=== PATIENT | female | born 1945 | race Caucasian/White ===

== ENCOUNTER 2016-05-29 19:19 | Inpatient (IN) | payer MEDICARE, MEDICAID ==
[~2016-05-29] VITALS: Ht 162.6 cm; Wt 84.5 kg
--- NOTE | ~2016-05-29 | ECH ---
Transesophageal Echocardiography Report (UZMA) Demographics Patient Name DEMETRIS DAVIS Date of Study 06/04/2016 Patient Number [id number] Visit Number [id number] Date of 1945 Room Number 429 Accession Number [id number] Gender Female Age 71 year(s) Referring Edson Rene MD Casualty Claim Adjuster Alejandra Montelongo [facility] Physician Raine Weeks PAC Physician Interpreting Krystin Buchanan Shift Manager Physician MD Supervising Ordering Physician Krystin Buchanan MD/CHEPE VILLAGRAN Nurse Stress Supervisor Evaporator The procedure was explained in detail to the patient. Risks, complications and alternative treatments were reviewed. Written consent was obtained. Conclusions Summary The estimated left ventricular ejection fraction is 55-60%. No evidence of patent foramen ovale by saline bubble study . There is no evidence of thrombus in the left atrium or the left atrial appendage. Mild atheroma in aorta. Procedure Type of Study UZMA procedure:UZMA SF. Procedure Date Date: 06/04/2016 Start: 08:46 AM Technical Quality: Adequate visualization Indications:Atrial fibrillation. Appropriate Use Criteria: 9 Height: 64 inches Weight: 186 pounds BSA: 1.9 m Rhythm: Atrial fibrillation HR: 120 bpm BP: 143/69 mmHg UZMA Performed By: Dewayne Mcclelland MD Procedure Informed Consent Procedure consent form obtained. - See IV sedation record Type of Anesthesia: Moderate sedation Findings Mitral Valve Normal mitral valve structure and function with trivial regurgitation. Aortic Valve Normal aortic valve structure and function. Tricuspid Valve Normal appearing tricuspid valve. Trivial tricuspid regurgitation by color Doppler. Pulmonic Valve Normal pulmonic valve structure and function. Signature
--- NOTE | 2016-05-31 12:41 | CO ---
ADMIT: 05/29/2016 RM/LOC: 313 [facility] MR#: [id number] [address] [address] SHANNAN DAVIS [address] [place] [address] Consultation SEX: F AGE: 71 : 1945 DATE OF CONSULTATION: 05/29/2016 ATTENDING PHYSICIAN: Scott Sandhu CONSULTING PHYSICIAN: Rick Bacon MD REASON FOR CONSULTATION: Atrial fibrillation with rapid ventricular response. HISTORY OF PRESENT ILLNESS: Shannan is an interesting 71-year-old female, who I was asked to see in consultation from Dr. Sandhu regarding atrial fibrillation. Shannan has a long history of atrial fibrillation dating back to 2010 when she underwent a cardioversion. She had been on diltiazem and flecainide and had been maintaining sinus rhythm. She presented in April with symptoms of some episodic chest pain. She had a prior stress test back in 2013 that was abnormal. She was treated medically at that time, but now with the chest pain, it was decided to change her flecainide to sotalol. She was started on 80 mg twice a day, but she had extreme fatigue with the sotalol. She had this decreased to 40 mg twice a day and underwent a Holter monitor that showed sinus rhythm with average heart rate in the 60s. She then was seen 2 days ago on May [address] Shaffer. At that time, she was in atrial fib with heart rate in the low 100. He stopped her sotalol and placed her on diltiazem, however, she understood that she was to stop all her medications. She subsequently quit taking all her medications Thursday evening and did not take anything until she presented to the emergency room on night with shortness of breath and palpitation. She was in atrial fibrillation and her heart rate was then in the 120s to 140s. She was admitted and placed on a Cardizem drip. She at this point, denies any chest pain. Denies orthopnea. She does have chronic shortness of breath and has underlying COPD. PAST MEDICAL HISTORY: 1. History of atrial fibrillation. 2. History of severe COPD. 3. History of pulmonary hypertension. 4. History of hypertension. 5. History of allergic rhinitis. 6. History of congenital left hand absence. MEDICATIONS: She is currently on: 1. Cardizem drip. 2. Eliquis 5 mg b.i.d. 3. Potassium 10 mEq daily. 4. Pepcid 20 mg b.i.d. 5. Dulera 2 puffs b.i.d. 6. DuoNeb q.i.d. 7. Solu-Medrol 40 mg IV q.8. SOCIAL HISTORY: She lives alone. She has 4 sons and 2 daughters. She states she rarely consumes alcohol. She drinks 1 cup of coffee a day. Does not do any regular exercise. She has a regular diet. She is a former smoker. ADMIT: 05/29/2016 RM/LOC: 313 [facility] MR#: [id number] [address] [place] [id number] SHANNAN DAVIS [address] [place] [address] Consultation SEX: F AGE: 71 : 1945 FAMILY HISTORY: Denies any family history of early coronary artery disease or strokes. REVIEW OF SYSTEMS: GENERAL: She denies any weight gain or fever. She has had generalized fatigue. EYES: Denies any visual changes. ENT: She does have decreased hearing. RESPIRATORY: She is short of breath, has COPD. CARDIAC: Denies orthopnea. She does have palpitations. Denies any syncope. She has had chest pain as described above. VASCULAR: Denies any claudication or edema. GI: Denies any bleeding. Positive for nausea and reflux. : Negative for hematuria or nocturia. ENDOCRINE: Denies any goiter or tumors. NEUROLOGIC: Denies any seizures. She appears to have some confusion at times. PSYCHIATRIC: Denies any hallucinations or depression. Denies anxiety. SKIN: Denies any sores. She does have a rash. MUSCULOSKELETAL: Denies any myalgias. She does have joint pain. HEMATOLOGIC: Denies any anemia or thrombocytopenia or easy bruising. All other systems reviewed and negative. PHYSICAL EXAMINATION: VITAL SIGNS: Blood pressure of 132/75, pulse is 128, respirations 25, oxygen 97% on oxygen, temperature 96.9, and weight 182. SKIN: [place], warm and dry. EYES: Sclerae clear. No xanthelasmas. ENT: Oral mucosa is pink and moist. She has nasal cannula oxygen on. RESPIRATIONS: She has coarse breath sounds. No wheezes or rhonchi. HEART: Irregularly irregular. ABDOMEN: Soft, nontender, and nondistended. EXTREMITIES: No clubbing, cyanosis, or edema. GENERAL: She is ill appearing, in no acute distress though. NECK: Supple. No bruits. SKIN: Dry. No lesions MUSCULOSKELETAL: Gait is normal. NEUROLOGIC: Cranial nerves II through XII intact. PSYCHIATRIC: She is alert, oriented, and appropriate. DIAGNOSTIC DATA: Troponin is negative. CK and CK-MB were normal. Potassium 4.7, creatinine 0.6. White blood cell count 8.9, hemoglobin 11.7, and platelets 140. IMPRESSION AND PLAN: Atrial fibrillation with rapid ventricular response. She is on oral diltiazem and her heart rate is a little better but still not optimal. We will start her on oral diltiazem and try to titrate down her IV Cardizem. She appears to have some baseline confusion and noncompliance with ADMIT: 05/29/2016 RM/LOC: 313 [facility] MR#: [id number] [address] [place] [phone] SHANNAN DAVIS [address] [place] [address] Consultation SEX: F AGE: 71 : 1945 her medications. She was seen on May 28 and instead of making med changes, she stopped all her medications, for about 24 hour period, she was without anticoagulation, however, actually talking to her, I am not confident that she has even been taking her medications as prescribed previously. This is a very difficult situation. I think she is symptomatic with her atrial fibrillation with rapid ventricular response. I would consider another antiarrhythmic, however, I am concerned about her tolerance and compliance with taking them. We could consider either dofetilide or amiodarone. Certainly with her underlying lung disease, dofetilide may be a better choice, but she also has to be reliable in taking it. We will get her rapid ventricular response better controlled and then decide about antiarrhythmic therapy as her care progresses. Rick Bacon MD/ mukesh JOB #: [id number] CC: Scott Sandhu, Attending Physician Scott Snadhu, Family Physician
--- NOTE | 2016-05-31 13:44 | ER ---
ADMIT: 05/29/2016 RM/LOC: 313 [facility] MR#: [id number] [address] [address] DEMETRIS DAVIS [address] [place] [address] Emergency Room Report SEX: F AGE: 71 : 1945 DATE: 05/29/2016 The patient is a 71-year-old female with a history of COPD, pulmonary hypertension, atrial fibrillation, and gastroesophageal reflux disease, who came to the ER with chief complaint of shortness of breath. The patient states she has been seen in the ER and she believes that she was told to stop all the medications, so she stopped all the medications for 1 day and she noticed she was short of breath, which started more in the morning and gradually increased during the day. Per EMS they got at the scene, the patient's O2 saturation was low 90s. The patient was in [id number] respiratory distress, received 2 DuoNeb nebulizer and Solu-Medrol IV. The patient felt better and was put on CPAP. In the ER, the patient was slightly anxious and O2 saturation was 90% on room air and heart rate was 155 to 160 irregularly irregular pulses and heart rate was atrial fibrillation, RVR. Blood pressure was holding systolic in 126, diastolic in mid 60s. The patient was alert, oriented, and denied any chest pain. The patient was taken off the CPAP and states the shortness of the breath also resolved. The patient has already been on sotalol, which she did not take it for the last day. The patient received 2 doses of bolus Cardizem 5 and 10 mg, which at first decreased the rate, but could not hold it down. The rate again came back to 135 to 140, and the patient was started on Cardizem drip. Blood pressure slightly dropped and the patient received IV bolus. Meanwhile, the physical examination of the patient head and neck was normal. No bruit in the neck. No murmur radiating to neck. Normal heart sounds without any murmurs, bilateral equal breath sounds. Abdomen is soft. There are no skin rashes. Motor and sensory and cranial and cerebellar tests are all within normal limits. The patient is in no obvious distress at the moment. After starting the Cardizem drip, the pulse rate was in the 95 to 105 rate. Internal Medicine was consulted and the patient was admitted for atrial fibrillation with RVR, COPD exacerbation, medication noncompliance. Devang Sylvester MD/ mukesh JOB #: [id number] CC: Scott Sandhu MD, Attending Physician Scott Sandhu MD, Family Physician
--- NOTE | 2016-06-02 08:11 | HP ---
ADMIT: 05/29/2016 RM/LOC: 313 [facility] MR#: [id number] [id number] [address] [address] DEMETRIS DAVIS [address] [place] [address] History and Physical SEX: F AGE: 71 : 1945 DATE OF SERVICE: CHIEF COMPLAINT: Shortness of breath. HISTORY OF PRESENT ILLNESS: This is a 71-year-old female, history of severe COPD, pulmonary hypertension, atrial fibrillation. Apparently in the recent past, she had been changed from diltiazem and flecainide to sotalol. After this change, the patient reports she felt very fatigued, very sleepy, and she had increased shortness of breath. She felt like she had less productive cough, but had more of cough. She was feeling really weak, so she stopped all her medicine. Today, she came in feeling increased shortness of breath. When she arrived, she was in atrial fibrillation with rapid ventricular response with a rate of 160s. She was given a bolus of diltiazem, which then dropped her blood pressures down quite low into the 70s. She was given IV fluid and put in a head-down position. Currently, she is lying flat. She does have fluid running and Cardizem is turned off. Heart rate right now is bouncing between 120s to 140s. She continues to feel poorly overall, but mostly does not like lying flat, it is hurting her back. PAST MEDICAL HISTORY: 1. Severe COPD. 2. Pulmonary hypertension. 3. Atrial fibrillation with RVR. 4. History of cor pulmonale. 5. Hypertension. 6. Seasonal allergies. 7. Congenital left hand absence. MEDICATIONS: She is currently not taking any. SOCIAL HISTORY: Long history of smoking, none currently. She does live here in [place]. She is retired. She does speak Romansh. FAMILY HISTORY: Reviewed, but noncontributory. REVIEW OF SYSTEMS: Other complete review of systems obtained and negative except as above. PHYSICAL EXAMINATION: VITAL SIGNS: Heart rate 120s-140s. Blood pressure at the current time is 130s over 80s, but has fluctuated even though within the last past hour down in the 50s, systolically. She is afebrile. Oxygen saturation is 99%. She is on 4 L of oxygen by nasal cannula. GENERAL: This is a mildly ill-appearing 71-year-old female. She is lying on her back in the ER at the time I see her. HEENT: Pupils equal, round, and reactive to light and accommodation. Her extraocular muscles are intact. Her throat is clear. NECK: Supple. Normal range of motion. Trachea is midline and thyroid is not palpable. RESPIRATIONS: She is wearing oxygen. Heart going too fast. I cannot hear ADMIT: 05/29/2016 RM/LOC: 313 [facility] MR#: [id number] [address] [place] [id number] DMEETRIS DAVIS [address] [place] [address] History and Physical SEX: F AGE: 71 : 1945 any murmurs. HEART: Tachycardic and irregular. LUNGS: Severely diminished bilaterally. No wheezes, rhonchi, or rales. ABDOMEN: Soft. Mildly tender to deep palpation. Bowel sounds are normal in all quadrants. LOWER EXTREMITIES: Have no lower extremity edema. SKIN: She has some dry skin throughout. No skin lesions can be seen. MUSCULOSKELETAL: She can move all extremities equally bilaterally. She has a congenital absence of her left hand. LABORATORY AND X-RAY DATA: Urine is completely clear. CBC; white count 8.9, hemoglobin 11.7, platelets of 140. Pro-time, INR, D-dimer, PTT all normal. Lactic acid is 0.7. CMP shows sodium 145, potassium 4.7, chloride 100, bicarb is 39, BUN 20, creatinine 0.6, glucose 123. Calcium normal, AST was 145, other liver tests normal. CK 22, creatinine 0.023, which is normal. Procalcitonin is less than 0.05. ASSESSMENT: 1. Atrial fibrillation with rapid ventricular response. 2. Hypotension secondary to atrial fibrillation. 3. Pulmonary hypertension. 4. Severe chronic obstructive pulmonary disease with exacerbation. 5. Acute on chronic hypoxic respiratory failure. PLAN: The patient initially was in the 80s on her usual oxygen setting, so she needed a couple of extra liters. Current sats are okay. We will give her a little IV fluid, hopefully we can restart her Cardizem. We will consult Cardiology for management of her antiarrhythmics, and she has received a dose of digoxin and Cardizem hopefully with some more time tonight with fluids we can get her heart rate to calm down. I will treat her for COPD exacerbation with some IV steroids and nebulizer treatments and IV doxycycline in case have to be some type of infectious component to this given her severe COPD. Scott Sandhu MD/ mukesh JOB #: [id number] CC: Scott Sandhu, Attending Physician Scott Sandhu, Family Physician
--- NOTE | 2016-06-06 08:13 | CVR ---
ADMIT: 05/29/2016 RM/LOC: 429 [facility] MR#: [id number] [address] [address] DEMETRIS DAVIS Jack [address] [place] [address] Cardioversion Report SEX: F AGE: 71 : 1945 DATE: 06/04/2016 INDICATION: Atrial fibrillation. PROCEDURE: Following informed consent in the patient's room with the assist of anesthesia, a UZMA was performed showing no evidence of left atrial appendage thrombus. Following UZMA with continued sedation help with anesthesia, synched biphasic energy shock was delivered with pads in anterior- posterior fashion, 120 joules was delivered. The patient returned to sinus rhythm. No complications. Rudolph Mcclelland MD/ jodi JOB #: [id number] CC: Scott Sandhu, Attending Physician Scott Sandhu, Family Physician
[2016-06-08] MEDS ORDERED: SYMBICORT160 MCG/6 IH (11:28)
[2016-06-08] MEDS ORDERED: PEPCID DPS20 MG PO (11:28)
[2016-06-08] MEDS ORDERED: LASIX DPS20 MG PO (11:28)
[2016-06-08] MEDS ORDERED: ULTRAM DPS50 MG PO (11:28)
[2016-06-08] MEDS ORDERED: ELIQUIS5 MG PO (11:28)
[2016-06-08] MEDS ORDERED: PROVENTIL HFA6.7 GM IH (11:29)
[2016-06-08] MEDS ORDERED: VITAMIN D31000 UNIT PO (11:29)
[2016-06-08] MEDS ORDERED: ZANAFLEX4 MG PO (11:29)
[2016-06-08] MEDS ORDERED: MICRO-K DPS10 MEQ PO (11:29)
[2016-06-08] MEDS ORDERED: DUONEB DPS3 ML IH (11:29)
[2016-06-08] MEDS ORDERED: COLACE-DPS100 MG PO (11:30)
[2016-06-08] MEDS ORDERED: DELTASONE DPS10 MG PO (11:30)
[2016-06-08] MEDS ORDERED: ZEBETA5 MG PO (11:31)
[2016-06-08] MEDS ORDERED: CARDIZEM CD360 MG PO (11:31)
[2016-06-08] MEDS ORDERED: TIKOSYN250 MCG PO (11:31)
--- NOTE | 2016-06-14 09:04 | DS ---
ADMIT: 05/29/2016 RM/LOC: 429 [facility] MR#: [id number] [address] [address] DEMETRIS DAVIS [address] [place] [address] Discharge Summary SEX: F AGE: 71 : 1945 ADMISSION DATE: 05/29/2016 DISCHARGE DATE: 06/06/2016 FINAL DIAGNOSES: 1. Atrial fibrillation with RVR. 2. Chronic obstructive pulmonary disease with exacerbation. 3. Chronic hypoxic respiratory failure. REASON FOR ADMISSION: This is a 71-year-old female, who presented with increased weakness. She was found to have some wheezing as well as atrial fibrillation with RVR. She was treated with IV diltiazem and ultimately transitioned to Tikosyn to try to keep her rate under control. A direct current cardioversion was attempted on the . Unfortunately, it did not keep her heart in normal sinus rhythm very long. She is continued on Tikosyn, but put on bisoprolol the . Heart rates did improve dramatically after that, however, she did have some prolonged 2 seconds times between her RR intervals, this was asymptomatic. She was actually feeling very well on the . She is continued on a steroid taper. She had already finished her antibiotics. She was set up to be discharged to home with some home health given her weakness related to her hospitalization, need for medication monitoring as well. She will follow up with Cardiology as well as me in 1 to 2 weeks. Scott Sandhu MD/ mukesh EDIT 06/10/2016 1450 / hannah JOB #: [id number] CC: Scott Sandhu MD, Attending Physician Scott Sandhu MD, Family Physician
== END 2016-06-06 12:57 | disposition home health service (06) | DRG 308 ==
LOC: ER 19:19 → 3ICU 21:39 → 4PCU 21:39 → 3ICU 05-30 19:09 → 4PCU 05-31 00:56
PROVIDERS: ADMIT Internal Medicine
PROC: 5A2204Z Restoration of Cardiac Rhythm, Single (ICD-10-PCS; principal; 2016-06-04)
DX: I48.91 Unspecified atrial fibrillation (principal); J96.21 Acute and chronic respiratory failure with hypoxia; E87.0 Hyperosmolality and hypernatremia; I27.2 Other secondary pulmonary hypertension; I95.9 Hypotension, unspecified; R13.10 Dysphagia, unspecified; J44.1 Chronic obstructive pulmonary disease with (acute) exacerbation; K21.9 Gastro-esophageal reflux disease without esophagitis; K59.00 Constipation, unspecified; R94.39 Abnormal result of other cardiovascular function study; I10 Essential (primary) hypertension; J30.9 Allergic rhinitis, unspecified; Q71.32 Congenital absence of left hand and finger; Z91.14 Patient's other noncompliance with medication regimen; Z87.891 Personal history of nicotine dependence

== ENCOUNTER 2016-06-12 08:29 | Day surgery (SDC) | payer MEDICARE, MEDICAID ==
[~2016-06-12] VITALS: Ht 162.6 cm; Wt 81.3 kg
[~2016-06-12 08:29] MED LIST: CARDIZEM CD360 MG PO; COLACE-DPS100 MG PO; DELTASONE DPS10 MG PO; DUONEB DPS3 ML IH; ELIQUIS5 MG PO; LASIX DPS20 MG PO; MICRO-K DPS10 MEQ PO; PEPCID DPS20 MG PO; PROVENTIL HFA6.7 GM IH; SYMBICORT160 MCG/6 IH; TIKOSYN250 MCG PO; ULTRAM DPS50 MG PO; VITAMIN D31000 UNIT PO; ZANAFLEX4 MG PO; ZEBETA5 MG PO
--- NOTE | 2016-06-27 17:23 | CVR ---
ADMIT: 06/12/2016 RM/LOC: S[facility] MR#: [id number] [address] [address] SHANNAN DAVIS [address] [place] [address] Cardioversion Report SEX: F AGE: 71 : 1945 DATE: 06/12/2016 PROCEDURE: Elective cardioversion. ANESTHESIA: IV propofol was administered and monitored by the Anesthesia Department. INDICATION: Shannan is a 71-year-old, who has had a long history of atrial fibrillation. She has multiple medication intolerances. She has been on sotalol but it was stopped. She then stopped her Cardizem at one point. Ultimately, she has been placed on Tikosyn. She was just in the hospital last week for loading. Cardioversion at that time failed. She presents today for repeat attempt cardioversion after she has been taking her medications routinely. She confirmed that she has been compliant with her anticoagulation and antiarrhythmic therapy. DESCRIPTION OF PROCEDURE: Informed consent was obtained. All questions were answered. The defibrillator pads were placed in the anterior and posterior position. After achieving adequate anesthesia, one biphasic defibrillation with 200 joules successfully restored sinus rhythm. There were no immediate complications. RECOMMENDATIONS: I reinforced the importance of taking her medications routinely. I will have her followup with us in just a few weeks. Eligio Florence MD/ mukesh JOB #: [id number] CC: Yassine Shaffer, Attending Physician Scott Sandhu, Family Physician
== END 2016-06-12 12:20 | disposition home or self-care (01) ==
LOC: SSS 08:29
DX: I48.0 Paroxysmal atrial fibrillation (principal); I34.8 Other nonrheumatic mitral valve disorders; I10 Essential (primary) hypertension; J45.909 Unspecified asthma, uncomplicated; M19.90 Unspecified osteoarthritis, unspecified site; J44.9 Chronic obstructive pulmonary disease, unspecified; Z90.49 Acquired absence of other specified parts of digestive tract; Z90.710 Acquired absence of both cervix and uterus; Z87.891 Personal history of nicotine dependence; Z79.899 Other long term (current) drug therapy

== ENCOUNTER 2016-08-09 14:31 | Inpatient (IN) | payer MEDICARE, MEDICAID ==
[~2016-08-09] VITALS: Ht 162.6 cm; Wt 83.4 kg
--- NOTE | 2016-08-10 12:33 | HP ---
ADMIT: 08/09/2016 RM/LOC: 308 [facility] MR#: [id number] [address] [address] DEMETRIS DAVIS Jack [address] [place], [place] [address] History and Physical SEX: F AGE: 71 : 1945 DATE OF SERVICE: CHIEF COMPLAINT: Shortness of breath. HISTORY OF PRESENT ILLNESS: The patient is a 71-year-old female. She has a past medical history of COPD, pulmonary hypertension, chronic hypoxic respiratory failure, atrial fibrillation with recent DC cardioversion, presents to [facility] emergency room today as she was found down by her son. According to reports, son is stopped by earlier in the day and was just seemed like she was little sleepy, not quite herself, would open her eyes. He came back to check on her again, and she was not responsive at all and seemed agonal with breathing. They called the paramedics and they found her to be in respiratory distress, so she was brought to the emergency department for further evaluation. She was found to be acidotic with a pCO2 greater than 100, and she was placed on BiPAP with improvement in her symptoms. She was also noted to initially be hypothermic with a temperature of 93.8. In visiting with the patient, she does not remember getting up this morning and actually does not think she even got out of bed. Did note going to bed last night. Did notice she had been little more short of breath. No chest pain. No fevers or chills have been noted. No actually new cough or sputum production have been noted by family. No abdominal pain, nausea, or vomiting. No new leg swelling is noted. Taking all medications as directed. The patient was recently hospitalized in June of this year for COPD exacerbation, atrial fibrillation with RVR and was DC cardioverted once on June 04 and again on June 12 after being started with Tikosyn. PAST MEDICAL HISTORY: 1. Atrial fibrillation with rapid ventricular response, on chronic anticoagulation status post DC cardioversion in June of this year. 2. Severe COPD with chronic hypoxic respiratory failure. 3. Pulmonary hypertension. 4. Atrial fibrillation. 5. GERD. 6. History of cor pulmonale. 7. Hypertension. 8. Seasonal allergic rhinitis. 9. Congenital absence of left hand. HOME MEDICATIONS: Include: 1. Potassium. 2. Lasix. 3. Eliquis. 4. Pepcid. 5. Diltiazem. 6. Zebeta. 7. Symbicort. 8. DuoNeb. 9. Tramadol. 10.Mucinex. ADMIT: 08/09/2016 RM/LOC: 308 [facility] MR#: [id number] [address] [place] [phone] DEMETRIS DAVIS [address] [place] [address] History and Physical SEX: F AGE: 71 : 1945 ALLERGIES: NO KNOWN MEDICAL ALLERGIES. SOCIAL HISTORY: She has a prior long history of smoking, not currently, lives in [place]. She is retired. FAMILY HISTORY: Noncontributory. REVIEW OF SYSTEMS: As noted above. All other systems reviewed and negative. PHYSICAL EXAMINATION: VITAL SIGNS: Right now, her blood pressure is 111/52, heart rate is 108, temperature was 96.1, she is saturating 98% on BiPAP 15/5. GENERAL: This is a female, actually appears little older than her stated age. She is in no apparent distress. She now is awake and alert, is able to communicate slightly through the BiPAP mask, but also was able to write notes appropriately. HEENT: Her head is normocephalic and atraumatic. Mucous membranes are little dry. NECK: Supple. LUNGS: Poor air movement, I do hear diminished at the bases with a few rales especially in the posterior lung patel. Air movement is really poor at this time. HEART: Tachy and regular. ABDOMEN: Soft, nontender, and nondistended. Positive bowel sounds throughout. EXTREMITIES: 1 to 1+ edema feet, ankles, and calves bilaterally. NEUROLOGIC: She is able to move all 4 extremities. Cranial nerves do appear to be intact. She follows commands. LABORATORY DATA: Lab work shows hemoglobin 12.4, white count was 8.6, and 137,000 platelets. Sodium 143, potassium 5.8, BUN is 37 with a creatinine of 1.0. Calcium is 8.8, mag was 2.5. UA was really within normal limits. Her initial blood gas 7.16, 130, and 68. AST, ALT, alkaline phosphatase, and total bilirubin all within normal limits. Her BNP was greater than 5600, CK 33, MB 3.9, troponin is less than 0.015. Procalcitonin is less than 0.05. Lactic acid was 1. Chest x-ray shows significant interstitial prominence when compared to her last film from late May, there was significant cardiomegaly noted with interstitial prominences consistent heart failure and atrial fibrillation. Her EKG shows atrial fibrillation at 116, no acute changes were noted. ASSESSMENT AND PLAN: 1. Loss of consciousness/delirium. 2. Acute hypercapnic respiratory failure with a history of chronic hypoxic respiratory failure. 3. Severe chronic obstructive pulmonary disease and pulmonary hypertension. 4. Acute diastolic heart failure with history of cor pulmonale. 5. Atrial fibrillation with rapid ventricular response. 6. Hypothermia. ADMIT: 08/09/2016 RM/LOC: 308 [facility] MR#: [id number] [address] [place] [phone] DEMETRIS DAVIS [address] [place] [id number] History and Physical SEX: F AGE: 71 : 1945 At this time, the patient is awake and alert after being really obtunded earlier. We got another blood gas is pending. We are going to keep her on BiPAP right now, and we will titrate her oxygen saturations just greater than 88. With her hypothermia, we will get her on a Raghavendra Hugger. She has been cultured up, and I will cover her with antibiotics right now and nebulized treatments. Her blood pressures overall look okay. I am going to try to diurese her a little bit. Right now, my guess is that she jumped into atrial fibrillation today, and it pushed her into some heart failure and worsened her chronic respiratory failure. We will have Cardiology see her. We are going to trend out some cardiac enzymes and also cover her with some steroids. We will follow closely. Lexx Huerta MD/ mukesh JOB #: [id number] CC: Scott Sandhu, Attending Physician Scott Sandhu, Family Physician
--- NOTE | 2016-08-11 15:08 | CO ---
ADMIT: 08/09/2016 RM/LOC: 308 [facility] MR#: [id number] [address] [address] DEMETRIS DAVIS [address] [place] [address] Consultation SEX: F AGE: 71 : 1945 DATE OF CONSULTATION: 08/10/2016 ATTENDING PHYSICIAN: Scott Sandhu CONSULTING PHYSICIAN: Rudolph Mcclelland MD REASON FOR CONSULTATION: Atrial fibrillation. HISTORY OF PRESENT ILLNESS: Ms. Davis is a 71-year-old white female well known to our service, who presented with atrial fibrillation, and was found down at home. We are consulting her at the request of Dr. Huerta for the problem of atrial fibrillation with rapid ventricular response. She was found down by her son per the H and P. She was a little sleepy, not quite herself at that time reading the HPI, and when he came back to check on her again, she has not responding. She was found to be hypercapnic, was started on BiPAP, and started to wake up a little bit more. Right now, she is on BiPAP and unable to give much rest of her history. PAST MEDICAL HISTORY: Includes: 1. Atrial fibrillation. 2. Severe COPD with chronic hypoxic respiratory failure. 3. Pulmonary hypertension. 4. GERD. 5. Right-sided heart failure. 6. Hypertension. 7. Congenital absence of the left hand. MEDICATIONS: Her current medications include: 1. Cardizem drip. 2. Levaquin. 3. Rocephin. 4. Solu-Medrol. 5. DuoNeb. ALLERGIES: NONE KNOWN. FAMILY HISTORY: Reviewed and there is no evidence of premature coronary disease. SOCIAL HISTORY: She is a long-time smoker. She is retired. She has six children. REVIEW OF SYSTEMS: A full 12-point review of systems was obtained, deemed to be negative except for the pertinently dictated positives in the HPI. PHYSICAL EXAMINATION: VITAL SIGNS: Today her blood pressure is 112/73 with a pulse in the 120s. Her temp is 98.3. Her weight today is 178 pounds. GENERAL: She is a pleasant, well-nourished, well-developed white female. She is on BiPAP, unable to answer many questions. ADMIT: 08/09/2016 RM/LOC: 308 [facility] MR#: [id number] [address] [address] DEMETRIS DAVIS [address] [place] [address] Consultation SEX: F AGE: 71 : 1945 NECK: Shows brisk carotid upstrokes. No JVD or bruit. CHEST: Coarse breath sounds throughout. HEART: Irregular and tachycardic. ABDOMEN: Soft, nontender, nondistended. Bowel sounds are present. EXTREMITIES: No cyanosis, clubbing, edema. MUSCULOSKELETAL: Appears normal. NEUROLOGIC: Exam is normal. SKIN: [place], warm, and dry. LABORATORY AND X-RAY DATA: Laboratory and ancillary data shows a pH this morning of 7.31, pCO2 of 84, PO2 of 69. Her sodium was 144, potassium 5.3, BUN 35, creatinine is 0.8, mag is 2.0. CK, MB, and troponin are all normal. White blood cell count 7.9, hemoglobin 11.4, and platelet count of 102. Chest x-ray shows a left-sided infiltrate. ASSESSMENT AND PLAN: 1. Atrial fibrillation, permanent. 2. Chronic obstructive pulmonary disease. 3. Respiratory failure. 4. Pneumonia. Rates seem appropriate for level of hypoxia and pulmonary infection. Her blood pressure is currently stable, continue Cardizem drip for rate control. EP recommended long-term rate control strategy for her, questionable need for AV iman ablation in the future but not at this time. If needed, we will add digoxin for further rate control. Resume her Eliquis when okay with her primary. I see no obvious evidence of heart failure and suspect this is more due to hypercapnia and pneumonia. Rudolph Mcclelland MD/ mukesh JOB #: [id number] CC: Scott Sandhu, Attending Physician Scott Sandhu, Family Physician
--- NOTE | 2016-08-12 14:52 | CO ---
ADMIT: 08/09/2016 RM/LOC: 308 [facility] MR#: [id number] [address] [address] DEMETRIS DAVIS [address] [place] [address] Consultation SEX: F AGE: 71 : 1945 DATE OF CONSULTATION: 08/11/2016 ATTENDING PHYSICIAN: Scott Sandhu CONSULTING PHYSICIAN: Louisa Trejo APRN TIME IN: 1250 hours. TIME OUT: 1340 hours. REASON FOR CONSULTATION: Supportive care consultation was requested by Dr. Huerta and Dr. Sandhu for discussion of goals for care. HISTORY OF PRESENT ILLNESS: Mrs. Davis is a very pleasant 71-year-old, female with a history of severe COPD, for which she is oxygen dependent as well as a history of pulmonary hypertension, atrial fibrillation, and heart failure. She was admitted on August 09 from home with increasing shortness of breath. PCO2 was found to be greater than 100. She was started on BiPAP therapy. At this time, she is a full code status. Due to her complexities, supportive care consultation was requested to discuss goals for care. In terms of advanced directives, the patient has not completed any. Her son, Luigi Lara, whose phone [phone] is listed as her truck driver salesperson. In discussion with the patient, she states that she has been thinking about completing health care [id number] paperwork and will likely designate someone outside of her family as a person to make medical decisions for her. She is a full code status at this time. Symptomatically, the patient is very fatigued and debilitated. She has had issues with delirium; however, she is alert and appropriate for me throughout the entire conversation. She does feel dyspnea at times. She denies pain or other physical complaints at this time. PAST MEDICAL HISTORY: Severe COPD with chronic hypoxic respiratory failure, pulmonary hypertension, atrial fibrillation, GERD, history of cor pulmonale, hypertension, seasonal allergic rhinitis, and congenital absence of the left hand. ALLERGIES: THE PATIENT HAS NO KNOWN MEDICATION ALLERGIES. CURRENT MEDICATIONS: Please see the patient's MAR for specific routes and dosages. Her current medications are as follows: 1. Rocephin. 2. Levaquin. 3. Mucinex. 4. Pepcid. 5. Eliquis. 6. Zebeta. ADMIT: 08/09/2016 RM/LOC: 308 [facility] MR#: [id number] [address] [address] DEMETRIS DAVIS [address] [place] [address] Consultation SEX: F AGE: 71 : 1945 7. Tiazac. 8. Dulera. 9. Ultram. 10.Solu-Medrol. 11.Tylenol. 12.Nitrostat. 13.DuoNeb. SOCIAL HISTORY: The patient is retired. She is . She has a past history of smoking. I do not believe she uses alcohol or illicit drugs currently. FAMILY HISTORY: Reviewed and noncontributory. FAMILY HISTORY: Reviewed per chart and noncontributory. FUNCTIONAL REVIEW: Prior to her stay, she was living at home. She could perform ADLs. She did become short of breath. Her palliative performance scale prior to admission was around 60% to 70%. Currently, she is mostly in bed. She is requiring mainly assistance for ADLs. Intake is reduced. She is drowsy. Her current palliative performance score is around 40%. REVIEW OF SYSTEMS: A 10-point review of systems was completed and other than those pertinent positives and negatives mentioned in the HPI, it is negative. PHYSICAL EXAMINATION: GENERAL: The patient is examined in the bed. As mentioned, she is fatigued, but in no acute distress. Unable to participate in medical decision making. VITAL SIGNS: Temperature 97.2, pulse is 96, respirations 24, blood pressure 94/78, and oxygen 96% on 45% FiO2 via the BiPAP. HEENT: Head is normocephalic. Pupils are 3 mm bilaterally and brisk. Oral mucosa pink and moist with fair dentition. NECK: Supple. RESPIRATORY: Respirations are equal and nonlabored on BiPAP. LUNGS: Diminished throughout. CARDIOVASCULAR: Irregularly irregular. No edema noted. GASTROINTESTINAL: Soft, nontender. Bowel sounds are positive. MUSCULOSKELETAL: Generalized weakness. She is missing the left hand, which is congenital defect for her. INTEGUMENTARY: Skin turgor is fair. NEUROLOGIC: Alert and oriented x3. She will follow commands. PSYCHIATRIC: Calm and cooperative. No agitation or delirium noted during my exam. DIAGNOSTIC DATA: Sodium 141, potassium 4.3, BUN 51, creatinine 1.1, total protein 6.7, and albumin 3.5. WBC is 14.0, hemoglobin 11.3, hematocrit 38.0, and platelets are 150. ADMIT: 08/09/2016 RM/LOC: 308 [facility] MR#: [id number] [address] [place] [phone] DEMETRIS DAVIS [address] [place] [address] Consultation SEX: F AGE: 71 : 1945 IMPRESSION: 1. Physical debility. 2. Dyspnea. 3. Fatigue. 4. Malaise. 5. Moderate protein-calorie malnutrition. 6. Delirium, however, she is oriented during my exam. 7. Respiratory failure. 8. Heart failure. 9. Atrial fibrillation. 10.Severe chronic obstructive pulmonary disease. 11.Pneumonia. 12.Palliative care. 13.The patient is a full code. PLAN OF TREATMENT: 1. I was able to meet with the patient and her son José Miguel at the bedside. The patient is very fatigued, but oriented x3, unable to participate in medical decision making. We reviewed her overall status and goals for the time ahead. She is aware that her lung disease is very bad. We very briefly started talking about goals. She is fatigued, but does agree to ongoing discussions and is aware that she is likely nearing the point where comfort focused care. It is a viable option. Her son has a hard time with this and is visibly tearful during our discussion, but very supportive of his mother and her decisions. We will continue to discuss goals hopefully more tomorrow when she is feeling a little better and able to participate for an extensive discussion. 2. We did review code status including the burden versus benefit of a full code status versus do not resuscitate/do not intubate status. The patient is very realistic and states that resuscitation would likely be more of a burden than benefit for her. At this time, she is leaning towards transitioning to a DNR/DNI; however, she wants to talk more with her family before making the final decision. Right now, she is a full code. The patient's son José Miguel states that he and most of her children are very supportive of the DNR/DNI should this be what she wants. They will talk as a family tonight and I will follow up tomorrow so that we can ADMIT: 08/09/2016 RM/LOC: 308 [facility] MR#: [id number] [address] [place] [phone] DEMETRIS DAVIS [address] [place] [address] Consultation SEX: F AGE: 71 : 1945 hopefully get a decision made regarding this. 3. The patient does need assistance with advanced directives, and hopefully, we can assist her with completion of healthcare [id number] and potentially POLST form while she is here. 4. We will continue to follow along in the care of this patient and assist with goals pending her status. We would like to thank Dr. Huerta and Dr. Sandhu for the invitation to participate in this patient's care. Total consultation time was 50 minutes from 1250 hours to 1340 hours with 27 minutes from 1255 hours to 1322 hours spent [id number] with the patient and her son discussing goals for care and providing counseling and support. Louisa Trejo APRN/ mukesh JOB #: [id number] CC: Scott Sandhu, Attending Physician Scott Sandhu, Family Physician
--- NOTE | 2016-08-16 08:39 | ER ---
ADMIT: 08/09/2016 RM/LOC: 308 [facility] MR#: [id number] 26[address] [facility] [address] [place] [phone] DEMETRIS DAVIS [address] [place] [address] Emergency Room Report SEX: F AGE: 71 : 1945 DATE: 08/09/2016 This 71-year-old female, who was last seen early this morning by her son. He noted her to be minimally responsive, would open her eyes. He then saw her again around 1330 this afternoon, noted she was not responsive and having great deal of difficulty breathing. He subsequently called paramedics, they arrived, found her to be in respiratory distress, transported to the Emergency Department. We are unable to obtain a history other than what is mentioned above as the patient is in [id number] respiratory distress, is obtunded and minimally responsive. PAST HISTORY: Per records of atrial fibrillation, hypertension, severe COPD. PHYSICAL EXAM: GENERAL: 71-year-old female, severe distress, obtunded. HEENT: Pupils are equal and reactive. LUNGS: Have prolonged expiration, decreased movement. CARDIAC: Tachycardia and irregular rate, irregular rhythm. No gallops or rubs. ABDOMEN: Obese, but soft and nontender. EXTREMITIES: Significant for left upper extremity anomaly. NEUROLOGICAL: She is obtunded and unable to provide any history. ER COURSE: Respiratory distress. The patient was placed on BiPAP emergently. ABGs were obtained. IV was obtained, Solu-Medrol given, Cardizem drip was initiated. She improved clinically. CBC returned with a normal white count. Chemistries are pending at time of this dictation. Initial ABG revealed pH of 6.98, PO2 of 133. The patient is being admitted to the ICU. DIAGNOSES: 1. Hypercapnic respiratory distress. 2. Chronic obstructive pulmonary disease exacerbation. Dario Forde MD/ mukesh JOB #: [id number] CC: Scott Sandhu MD, Attending Physician Scott Sandhu MD, Family Physician
--- NOTE | 2016-09-07 08:54 | DS ---
ADMIT: 08/09/2016 RM/LOC: 415 [facility] MR#: [id number] 2620 [facility] [address] [place] [phone] DEMETRIS DAVIS [address] [place] [address] General Discharge Summary SEX: F AGE: 71 : 1945 ADMISSION DATE: 08/09/2016 DISCHARGE DATE: 08/20/2016 Date of discharge/, 08/20/2016. FINAL DIAGNOSES: Include: 1. End-stage chronic obstructive pulmonary disease with chronic hypoxic and hypercarbic respiratory failure. 2. Back pain. 3. Cor pulmonale. 4. Atrial fibrillation. REASON FOR ADMISSION: This is a 71-year-old female with long-standing lung disease, who presented with increased shortness of breath and AFib. Ultimately, she waxed and waned throughout her time here and then by the end started getting worse. We had a discussion that we did not think we are going to be able to get her to improve overall, so she was made comfort care and she peacefully on the . Scott Sandhu MD/ mukesh JOB #: [id number] CC: Scott Sandhu MD, Attending Physician Scott Sandhu MD, Family Physician
== END 2016-08-20 19:50 | disposition expired | DRG 291 ==
LOC: ER 14:31 → 3ICU 16:45 → 4PCU 08-15 08:28
PROVIDERS: ADMIT Internal Medicine
PROC: 5A09557 Assistance with Respiratory Ventilation, Greater than 96 Consecutive Hours, Continuous Positive Airway Pressure (ICD-10-PCS; principal; 2016-08-09)
DX: I11.0 Hypertensive heart disease with heart failure (principal); J96.02 Acute respiratory failure with hypercapnia; J18.9 Pneumonia, unspecified organism; E44.0 Moderate protein-calorie malnutrition; J96.11 Chronic respiratory failure with hypoxia; T68.XXXA Hypothermia, initial encounter; I27.2 Other secondary pulmonary hypertension; Z99.81 Dependence on supplemental oxygen; J44.0 Chronic obstructive pulmonary disease with (acute) lower respiratory infection; I50.31 Acute diastolic (congestive) heart failure; Z51.5 Encounter for palliative care; I48.2 Chronic atrial fibrillation; R40.0 Somnolence; M54.9 Dorsalgia, unspecified; K21.9 Gastro-esophageal reflux disease without esophagitis; J30.9 Allergic rhinitis, unspecified; I27.81 Cor pulmonale (chronic); Q74.0 Other congenital malformations of upper limb(s), including shoulder girdle; Z87.891 Personal history of nicotine dependence; Z79.01 Long term (current) use of anticoagulants; Z66 Do not resuscitate